=== PATIENT | female | born 1965 | race Caucasian/White ===

== ENCOUNTER → 2024-03-20 06:43 | Outpatient (REF) | payer BC, SELFPAY ==
[2024-03-20 09:21] LABS: Glycohemoglobin (HgbA1c) 5.3 % (4.0-5.6)
[2024-03-20 09:51] LABS: ALT (SGPT) 63 U/L (0-35); AST (SGOT) 52 U/L (14-36); Albumin 4.8 g/dl (3.5-5.0); Alkaline Phosphatase 64 U/L (38-126); Blood Urea Nitrogen 15 mg/dl (7-17); Calcium 9.2 mg/dl (8.4-10.2); Carbon Dioxide 26 mmol/L (22-30); Chloride 106 mmol/L (98-107); Glucose 113 mg/dl (70-99); HDL Cholesterol 41 mg/dl; LDL Cholesterol, Calculated 60 mg/dl; Potassium 4.4 mmol/L (3.5-5.1); Sodium 146 mmol/L (135-145); Total Bilirubin 0.6 mg/dl (0.2-1.3); Total Cholesterol 115 mg/dl (50-199); Triglyceride 72 mg/dl (10-149); Very Low Density Lipoprotein 14 mg/dl (0-30); eGFR > 60.00
[2024-03-20 10:20] LABS: TSH Reflex To Free T4 2.94 uIU/ml (0.47-4.68)
[2024-03-20 10:56] LABS: Folate 7.2 ng/ml (2.76-20); Vitamin B12 247 pg/ml (239-931)
[2024-03-20 17:51] LABS: % Basophils 0.5 % (0-2); % Eosinophils 0.5 % (0-6); % Immature Granulocytes 5.5 % (0-0.5); % Lymphocytes 34.3 % (20.5-51.1); % Monocytes 9.5 % (1.7-9.3); % Neutrophils 49.7 % (42.2-75.2); Absolute Immature Granulocytes 0.1 10^3/uL (0-0.05); Absolute Lymphocytes 0.7 10^3/uL (1.2-3.4); Absolute Monocytes 0.2 10^3/uL (0.1-0.6); Hemoglobin 11.3 g/dL (12.0-16.0); Mean Corp Hgb Conc. 32.3 g/dL (33.0-37.0); Mean Corpuscular Hgb 33.8 pg (27.0-31.0); Mean Corpuscular Volume 104.8 fL (81.0-99.0); Nucleated Red Blood Cells % 1.5 %; Platelet Count 90 10^3/uL (130-400); Red Blood Cell Count 3.34 10^6/uL (4.20-5.40); Red Cell Dist. Width 15.2 % (11.5-14.5)
== END ==
LOC: HWLAB 06:43
PROVIDERS: ATTENDING PHYSICIAN Nurse Practitioner Family
DX: E66.9 Obesity, unspecified (principal); C94.6 Myelodysplastic disease, not elsewhere classified; K21.9 Gastro-esophageal reflux disease without esophagitis; E53.8 Deficiency of other specified B group vitamins; R73.01 Impaired fasting glucose
CPT/HCPCS: 36415; 80053; 80061; 82607; 82746; 83036; 84443; 85025

== ENCOUNTER → 2024-06-07 06:59 | Outpatient (REF) | payer OTHER, SELFPAY ==
[2024-06-07 10:47] LABS: ALT (SGPT) 39 U/L (0-35); AST (SGOT) 34 U/L (14-36); Albumin 4.9 g/dl (3.5-5.0); Alkaline Phosphatase 75 U/L (38-126); Blood Urea Nitrogen 15 mg/dl (7-17); Calcium 9.3 mg/dl (8.4-10.2); Carbon Dioxide 27 mmol/L (22-30); Chloride 104 mmol/L (98-107); Glucose 109 mg/dl (70-99); Potassium 4.1 mmol/L (3.5-5.1); Sodium 142 mmol/L (135-145); Total Bilirubin 0.6 mg/dl (0.2-1.3); Total Protein 7.2 g/dl (6.3-8.2); eGFR > 60.00
[2024-06-07 10:59] LABS: % Basophils 0.5 % (0-2); % Immature Granulocytes 1.6 % (0-0.5); % Lymphocytes 40.8 % (20.5-51.1); % Monocytes 8.9 % (1.7-9.3); % Neutrophils 48.2 % (42.2-75.2); Absolute Lymphocytes 0.8 10^3/uL (1.2-3.4); Absolute Monocytes 0.2 10^3/uL (0.1-0.6); Absolute Neutrophils 0.9 10^3/uL (1.4-6.5); Hematocrit 34.8 % (37.0-47.0); Hemoglobin 11.5 g/dL (12.0-16.0); Mean Corpuscular Hgb 33.3 pg (27.0-31.0); Mean Corpuscular Volume 100.9 fL (81.0-99.0); Mean Platelet Volume 12.8 fL (7.4-10.4); Platelet Count 100 10^3/uL (130-400); Red Blood Cell Count 3.45 10^6/uL (4.20-5.40); Red Cell Dist. Width 14.4 % (11.5-14.5); White Blood Cell Count 1.9 10^3/uL (4.8-10.8)
[2024-06-07 11:40] LABS: Folate 6.7 ng/ml (2.76-20)
[2024-06-07 12:38] LABS: Vitamin B12 470 pg/ml (239-931)
[2024-06-07 19:00] LABS: Hepatitis B Surface Antigen Negative (Negative)
[2024-06-07 19:18] LABS: Hepatitis B Surface Antibody Positive; Hepatitis C Antibody Negative (Negative)
== END ==
LOC: HWLAB 06:59
PROVIDERS: ATTENDING PHYSICIAN Internal Medicine Hematology & Oncology; FAMILY PHYSICIAN Nurse Practitioner Family
DX: D61.818 Other pancytopenia (principal); D46.A Refractory cytopenia with multilineage dysplasia; R94.5 Abnormal results of liver function studies; E53.8 Deficiency of other specified B group vitamins
CPT/HCPCS: 36415; 80053; 82607; 82746; 85025; 86706; 86803; 87340

== ENCOUNTER → 2025-04-05 08:01 | Outpatient (REF) | payer OTHER, SELFPAY ==
[2025-04-05 10:28] LABS: Absolute Neutrophils -Man Diff 0.7 10^3/uL (1.4-6.5); Hematocrit 30.2 % (37.0-47.0); Hemoglobin 9.3 g/dL (12.0-16.0); Mean Corp Hgb Conc. 30.8 g/dL (33.0-37.0); Mean Corpuscular Volume 101.7 fL (81.0-99.0); Normal RBC Morphology No; Platelet Count 150 10^3/uL (130-400); Platelets Checked Yes; Red Cell Dist. Width 17.5 % (11.5-14.5)
[2025-04-05 10:29] LABS: Acanthocytes 1+; Anisocytosis 1+; Basophilic Stippling 1+; Hypochromasia 1+; Ovalocytes 1+; Polychromasia 1+; Tear Drop Red Blood Cells 1+
[2025-04-05 10:30] LABS: Total Cells Counted 100
== END ==
LOC: HWLAB 08:01
PROVIDERS: ATTENDING PHYSICIAN Internal Medicine Hematology & Oncology; FAMILY PHYSICIAN Nurse Practitioner Family
DX: D61.818 Other pancytopenia (principal); D46.A Refractory cytopenia with multilineage dysplasia
CPT/HCPCS: 36415; 85025